=== PATIENT | female | born 1955 | race Caucasian/White ===

== ENCOUNTER 2017-07-19 14:08 | Emergency (ER) | payer OTHER ==
--- NOTE | 2017-07-19 15:26 | ER Document Report ---
ED Respiratory Problem - General Chief Complaint: Cough Stated Complaint: THROAT ISSUES Time Seen by Provider: 07/19/17 15:06 Notes: Patient is a 62-year-old female who presents emergency department with a chief complaint of sore throat, fever and chills nausea that started this morning. Recent past medical history significant for bronchitis, shortness of breath and nonproductive cough for the past 5 weeks. Patient states that she has been treated with antibiotics steroids with her primary care office out of [facility]. She states that she still has intermittent shortness of breath but denies any chest pain. Patient concerns that her sore throat, Fever are consistent with an allergic reaction to her Singulair which she has been taken before but recently restarted within the past week. She denies any rash, tongue or lip swelling. TRAVEL OUTSIDE OF THE [place] IN LAST 30 DAYS: No - Related Data Allergies/Adverse Reactions: phenytoin [From Dilantin] Allergy (Verified 07/19/17 14:10) Sulfa (Sulfonamide Antibiotics) Allergy (Verified 07/19/17 14:10) Past Medical History - Social History Smoking Status: Former Smoker Chew tobacco use (# tins/day): No Frequency of alcohol use: Rare Drug Abuse: None Family History: Reviewed & Not Pertinent Patient has suicidal ideation: No Patient has homicidal ideation: No - Past Medical History Cardiac Medical History: Reports: Hx Hypercholesterolemia, Hx Hypertension Renal/ Medical History: Denies: Hx Peritoneal Dialysis Psychiatric Medical History: Reports: Hx Bipolar Disorder Review of Systems - Review of Systems Notes: REVIEW OF SYSTEMS: CONSTITUTIONAL : Admits to subjective fevers denies chills, or sweats. Denies recent illness. EENT: See HPI otherwise Denies eye, ear, throat, or mouth pain or symptoms. Denies nasal or sinus congestion or discharge. Denies throat, tongue, or mouth swelling CARDIOVASCULAR: Denies chest pain. Denies palpitations or racing or irregular heart beat. Admits to mild ankle edema. RESPIRATORY: Admits to nonproductive cough, shortness of breath Denies difficulty breathing, or wheezing. GASTROINTESTINAL: Denies abdominal pain or distention. Denies nausea, vomiting , or diarrhea. Denies blood in vomitus, stools, or per rectum. Denies black, tarry stools. Denies constipation. MUSCULOSKELETAL: Denies any muscle spasms, difficulty walking, extremity pain SKIN: Denies rash, lesions or sores. HEMATOLOGIC : Denies easy bruising or bleeding. LYMPHATIC: Denies swollen, enlarged glands. NEUROLOGICAL: Denies confusion or altered mental status. Denies passing out or loss of consciousness. Denies dizziness or lightheadedness. Denies headache. Denies weakness or paralysis or loss of use of either side. Denies problems with gait or speech. Denies sensory loss, numbness, or tingling. Denies seizures. PSYCHIATRIC: Denies anxiety or stress. Denies depression, suicidal ideation, or homicidal ideation. ALL OTHER SYSTEMS REVIEWED AND NEGATIVE. Dictation was performed using [employer] voice recognition software Physical Exam - Vital signs Vitals: Temp Pulse Resp BP Pulse Ox 99.0 F 103 H 23 H 139/74 H 97 07/19/17 14:22 07/19/17 14:22 07/19/17 14:22 07/19/17 14:22 07/19/17 14:22 - Notes Notes: PHYSICAL EXAM GENERAL: Alert, interacts well. HEENT: NCAT, pale conjunctiva, extraocular movements intact, pupils PERRL. external ear normal, no evidence of external auditory canal tenderness, blood/ drainage, cerumen impaction, TM intact without evidence of effusion, bulging, injection, MMM, Uvula midline. Airway patent. No evidence of tonsillar enlargement, peritonsillar abscess, retropharyngeal abscess. LUNGS: Clear to auscultation bilaterally, no wheezes, rales, or rhonchi. No respiratory distress. HEART: Regular rate and rhythm. No murmurs, gallops, or rubs. ABDOMEN: Soft, nondistended, nontender. No guarding, rebound, or rigidity.. Bowel sounds present in all 4 quadrants. EXTREMITIES: Moves all 4 extremities spontaneously. Bilateral 1+ pitting edema , radial and dorsalis pedis pulses 2/4 bilaterally. No cyanosis. NEUROLOGICAL: Alert and oriented x4. Normal speech. PSYCH: Normal affect, normal mood. SKIN: Warm, dry, normal turgor. No rashes or lesions noted. Course - Re-evaluation Re-evalutation: Patient is a 62-year-old female who is hemodynamically stable, no acute distress and afebrile. Rapid strep was negative without any significant pharyngeal physical exam findings, no concern for peritonsillar retropharyngeal abscess. CTA performed after multiple chest x-rays done. Otherwise will score 0. BMP also does not show any significant elevation concerning for underlying undiagnosed CHF. Therefore patient's sore throat is likely related to a viral cause. Discussed with her to follow-up with her primary care doctor this week. Patient agrees with plan and stable for discharge home - Vital Signs Vital signs: Temp Pulse Resp BP Pulse Ox 99.1 F 90 23 H 126/64 H 96 07/19/17 18:25 07/19/17 18:25 07/19/17 14:22 07/19/17 18:25 07/19/17 18:25 - Laboratory Result Diagrams: 07/19/17 16:11 07/19/17 16:40 Laboratory results interpreted by me: 07/19/17 07/19/17 16:11 16:40 WBC 12.1 H Hgb 11.6 L Hct 34.3 L RDW 14.1 H Seg Neutrophils % 81.0 H Lymphocytes % 11.2 L Absolute Neutrophils 9.8 H Glucose 126 H Discharge - Discharge Clinical Impression: Sore throat, Cough Condition: Good Disposition: HOME, SELF-CARE Additional Instructions: Your evaluation today does not show any evidence of a bacterial cause for your sore throat. I would recommend an oopa-zfe-ayfnqne lozenge that has menthol in it or Cepacol to help with your sore throat and otherwise to utilize a soft, liquid diet. You can also take qsdm-ryv-jieryrs Motrin and Tylenol for pain. Regarding your shortness of breath, cough, there is no evidence of a blood clot in her lungs, underlying pneumonia or any other abnormalities on your CT scan. Please follow-up with your primary care doctor as instructed. Otherwise please hold off on the Singulair and you can start taking an sfhk-vfu-iskcfak Claritin/ Zyrtec/Aparna.
[2017-07-19 16:27] LABS: ABSOLUTE EOSINOPHILS # (AUTO) 0.1 10^3/uL (0.0-0.6); ABSOLUTE LYMPHOCYTES (AUTO) 1.3 10^3/uL (0.5-4.7); ABSOLUTE MONOCYTES (AUTO) 0.8 10^3/uL (0.1-1.4); ABSOLUTE NEUT (AUTO) 9.8 10^3/uL (1.7-8.2); BASOPHILS % (AUTO) 0.3 % (0-2); EOSINOPHILS % (AUTO) 1.1 % (0-6); HEMATOCRIT 34.3 % (36.0-47.0); HEMOGLOBIN 11.6 g/dL (12.0-15.5); LYMPHOCYTES % (AUTO) 11.2 % (13-45); MEAN CORPUSCULAR HEMOGLOBIN 28.2 pg (27.0-33.4); MEAN CORPUSCULAR HGB CONC 33.7 g/dL (32.0-36.0); MEAN CORPUSCULAR VOLUME 84 fl (80-97); MONOCYTES % (AUTO) 6.4 % (3-13); PLATELET COUNT 187 10^3/uL (150-450); RED CELL DISTRIBUTION WIDTH 14.1 % (11.5-14.0); TOTAL CELLS COUNTED % (AUTO) 100 %; WHITE BLOOD COUNT 12.1 10^3/uL (4.0-10.5)
[2017-07-19 17:11] LABS: ANION GAP 10 (5-19); BLOOD UREA NITROGEN 12 mg/dL (7-20); CALCIUM 9.5 mg/dL (8.4-10.2); CARBON DIOXIDE 27 mmol/L (22-30); CHLORIDE 105 mmol/L (98-107); GLUCOSE 126 mg/dL (75-110); POTASSIUM 3.9 mmol/L (3.6-5.0); SODIUM 142.1 mmol/L (137-145)
[2017-07-19] MEDS ORDERED: ONDANSETRON 4 MG TAB.RAPDIS PO ONE (17:45)
--- NOTE | 2017-07-19 17:55 | RADIOLOGY REPORT (SQ) ---
EXAM DESCRIPTION: CTA CHEST COMPLETED DATE/TIME: 07/19/2017 5:45 pm REASON FOR STUDY: SOB, DEWITT COMPARISON: None. TECHNIQUE: CT scan of the chest performed using helical scanning technique with dynamic intravenous contrast injection. Images reviewed with lung, soft tissue and bone windows. Reconstructed coronal and sagittal MPR images reviewed. Additional 3 dimensional post-processing performed to develop Maximal Intensity Projection images (ND P). All images stored on PACS. All CT scanners at this facility use dose modulation, iterative reconstruction, and/or weight based d osing when appropriate to reduce radiation dose to as low as reasonably achievable (ALARA). [facility]: Dose Right [facility]: CareDose [facility]: Dose Right [facility]: Teradose 4D [facility]: Aquaporin CONTRAST TYPE AND DOSE: contrast/concentration: Isovue 370.00 mg/ml; Total Contrast Delivered: 81.0 ml; Total Saline Delivered: 80.1 ml Contrast bolus adequate for pulmonary arteries and aorta. RENAL FUNCTION: BUN 12 creatinine 0.67. RADIATION DOSE: CT Rad equipment meets quality standard of care and radiation dose reduction techniq ues were employed. CTDIvol: 19.5 - 39.7 mGy. DLP: 706 mGy-cm. . LIMITATIONS: None. FINDINGS: LUNGS AND PLEURA: No masses, infiltrates, pneumothorax. No pleural effusions, calcificati ons. AORTA AND GREAT VESSELS: No aneurysm. No dissection. HEART: No pericardial effusion. No significant coronary artery calcifications. PULMONARY ARTERIES: No emboli visualized in the main pulmonary arteries or the segmental branches. HILAR AND MEDIASTINAL STRUCTURES: No identified masses or abnormal nodes. HARDWARE: None in the chest. UPPER ABDOMEN: No significant findings. Limited exam. THYROID AND OTHER SOFT TISSUES: No masses. No adenopathy. BONES: No acute or significant finding. 3D MIPS: Confirm above findings. OTHER: No other significant finding. IMPRESSION: NORMAL CTA OF THE CHEST. NO PULMONARY EMBOLI. COMMENT: Quality ID # [id number]: Final reports with documentation of one or more dose reduction techniques (e.g., Automated exposure control, adjustment of the mA and/or kV according to patient size, use of iterative reconstruction technique) TECHNICAL DOCUMENTATION: JOB ID: [id number] [employer]- All Rights Reserved Reading location - IP/workstation name: [email or web address]
[2017-07-19 18:28] VITALS: BP 126/64
== END 2017-07-19 18:27 | disposition home or self-care (01) ==
LOC: ER 14:08
DX: J02.9 Acute pharyngitis, unspecified (principal); R05 Cough; R11.0 Nausea; E78.00 Pure hypercholesterolemia, unspecified; I10 Essential (primary) hypertension; Z87.891 Personal history of nicotine dependence
CPT/HCPCS: 99284; 36415; 87070; 87880; 85025; 87077; 80048; 83880; 71275; S0119

== ENCOUNTER 2019-12-10 17:56 | Emergency (ER) | payer SELFPAY ==
[2019-12-10] MEDS ORDERED: FAMOTIDINE INJ/PF 20 MG/2 ML SDV IV ONE (20:21)
[2019-12-10] MEDS ORDERED: METHYLPREDNISOLONE INJ 125 MG/2 ML SDV IV ONE (20:21)
[2019-12-10] MEDS ORDERED: DIPHENHYDRAMINE HCL 50 MG/ML VIAL IV ONE (20:21)
--- NOTE | 2019-12-10 20:39 | ER Document Report ---
ED General - General Chief Complaint: Rash Stated Complaint: COUGH/CONGESTION/SOB/RASH/CHILLS Time Seen by Provider: 12/10/19 19:56 Notes: CHIEF COMPLAINT: Multiple complaints HPI: 64-year-old female presenting with multiple complaints. Patient has not felt well over the last 5 or 6 days progressively worsening cough and shortness of breath. No chest pain. Patient broke out in a pruritic urticarial type rash yesterday which she felt first in the throat now on the extremities and torso. Has not taken any medications for same. Patient states she has lost her sense of taste and smell. Patient states that 1 of her family members [place] for being sick with upper respiratory symptoms earlier in the week as well but does not believe they were COVID tested. Patient complains of some nausea no vomiting. Occasional diarrhea. ROS: See HPI - all other systems were reviewed and are otherwise negative Constitutional: no fever Eyes: no drainage, no blurred vision ENT: no runny nose, no sore throat Cardiovascular: no chest pain Resp: + SOB, + cough GI: no vomiting, + diarrhea, no abdominal pain, + nausea : no dysuria Integumentary: no rash Allergy: + hives Musculoskeletal: no extremity pain or swelling Neurological: no numbness/tingling, no weakness MEDICATIONS: I agree with the patient medications as charted by the RN. ALLERGIES: I agree with the allergies as charted by the RN. PAST MEDICAL HISTORY/PAST SURGICAL HISTORY: Reviewed and agree as charted by RN. SOCIAL HISTORY: Reviewed and agree as charted by RN. FAMILY HISTORY: No significant familial comorbid conditions directly related to patient complaint EXAM: Reviewed vital signs as charted by RN. CONSTITUTIONAL: Alert and oriented and responds appropriately to questions. Well-appearing; well-nourished HEAD: Normocephalic; atraumatic EYES: PERRL; Conjunctivae clear, sclerae non-icteric ENT: normal nose; no rhinorrhea; moist mucous membranes; pharynx without lesions noted, no uvula edema or deviation, no tonsillar hypertrophy, phonation normal NECK: Supple without meningismus; non-tender; no cervical lymphadenopathy, no masses CARD: RRR; no murmurs, no clicks, no rubs, no gallops; symmetric distal pulses RESP: Normal chest excursion without splinting or tachypnea; breath sounds clear and equal bilaterally; no wheezes, no rhonchi, no rales, pulse oximetry 97% on room air not hypoxic ABD/GI: Obese, normal bowel sounds; non-distended; soft, non-tender, no rebound, no guarding; no palpable organomegaly or masses. BACK: The back appears normal and is non-tender to palpation, there is no CVA tenderness EXT: Normal ROM in all joints; non-tender to palpation; no cyanosis, no effusions, no edema SKIN: Normal color for age and race; warm; dry; good turgor; urticarial lesions are noted on the bilateral arms legs and torso NEURO: Moves all extremities equally; Motor and sensory function intact PSYCH: The patient's mood and manner are appropriate. Grooming and personal hygiene are appropriate. MDM: 64-year-old female presenting with multiple complaints suggesting COVID-19 infection. Will obtain screening labs including cardiac labs given the patient age, EKG, chest x-ray to evaluate for infiltrate. Patient does have generalized urticaria will treat with steroids and antihistamines. TRAVEL OUTSIDE OF THE [place] IN LAST 30 DAYS: No - Related Data Allergies/Adverse Reactions: phenytoin [From Dilantin] Allergy (Verified 07/19/17 14:10) Sulfa (Sulfonamide Antibiotics) Allergy (Verified 07/19/17 14:10) Past Medical History - Social History Smoking Status: Unknown if Ever Smoked Family History: Reviewed & Not Pertinent - Past Medical History Cardiac Medical History: Reports: Hx Hypercholesterolemia, Hx Hypertension Renal/ Medical History: Denies: Hx Peritoneal Dialysis Psychiatric Medical History: Reports: Hx Bipolar Disorder Physical Exam - Vital signs Vitals: Pulse Ox 99 12/10/19 17:56 Course - Re-evaluation Re-evalutation: 12/10/19 22:35 Patient's lab work does not show acute emergent abnormalities. Chest x-ray does not show acute emergent abnormalities. Hives are significantly improved. We wi ll plan to keep patient on steroids and antihistamines given the urticaria. We will keep her on Zofran for the nausea. She was reporting some epigastric distress. We will keep her on Pepcid as well. Patient will be considered a person under investigation at this time will still quarantine at home until she has a negative test result will return for any worsening of her symptoms 12/10/19 22:38 EKG normal sinus rhythm with a ventricular rate of 97 without other ectopy. MN interval of 152 with a QT of 356 interpreted by emergency department physician - Vital Signs Vital signs: Temp Pulse Resp BP Pulse Ox 98.8 F 95 24 H 150/74 H 100 12/10/19 19:46 12/10/19 19:46 12/10/19 19:46 12/10/19 19:46 12/10/19 19:46 - Laboratory Result Diagrams: 12/10/19 21:09 12/10/19 21:09 Laboratory results interpreted by me: 12/10/19 21:09 Sodium 135.4 L Est GFR (MDRD) Non-Af 56 L Glucose 124 H Discharge - Discharge Clinical Impression: Acute urticaria, Person under investigation for COVID-19, Shortness of breath, Nausea Condition: Stable Disposition: HOME, SELF-CARE Additional Instructions: Your lab work and chest x-ray did not show acute emergent abnormalities. You are considered a person under investigation for COVID-19 at this time self quarantine at home until you have a negative test result. Take Zofran for nausea. Take Pepcid and prednisone for the urticaria and hives. Follow-up with your primary care provider return if you have worsening symptoms. Test results usually take 2 to 5 days Prescriptions: Prednisone [Deltasone 20 mg Tablet] 2 tab PO DAILY 5 Days #10 tablet Famotidine [Pepcid 20 mg Tablet] 20 mg PO BID #12 tablet Ondansetron [Zofran Odt 4 mg Tablet] 1 - 2 tab PO Q4H PRN #15 tab.rapdis PRN Reason: For Nausea/Vomiting
--- NOTE | 2019-12-10 21:07 | RADIOLOGY REPORT (SQ) ---
EXAM DESCRIPTION: [facility]: XR CHEST 1 VIEW CLINICAL HISTORY: 64 years Female; cough; COMPARISON: None. FINDINGS: Lungs: Lungs are clear, with no focal infiltrate, pneumothorax, or pleural effusion. Mediastinum: Mediastinum is within normal limits for this positioning. Bones: Bony structures are unremarkable. IMPRESSION: 1. No acute pulmonary findings.
[2019-12-10 21:28] LABS: ABSOLUTE LYMPHOCYTES (AUTO) 1.5 10^3/uL (0.5-4.7); ABSOLUTE MONOCYTES (AUTO) 0.5 10^3/uL (0.1-1.4); ABSOLUTE NEUT (AUTO) 2.9 10^3/uL (1.7-8.2); BASOPHILS % (AUTO) 0.5 % (0-2); EOSINOPHILS % (AUTO) 0.8 % (0-6); HEMATOCRIT 41.4 % (36.0-47.0); HEMOGLOBIN 14.5 g/dL (12.0-15.5); LYMPHOCYTES % (AUTO) 29.9 % (13-45); MEAN CORPUSCULAR HEMOGLOBIN 29.4 pg (27.0-33.4); MEAN CORPUSCULAR HGB CONC 34.9 g/dL (32.0-36.0); MEAN CORPUSCULAR VOLUME 84 fl (80-97); MONOCYTES % (AUTO) 9.2 % (3-13); PLATELET COUNT 187 10^3/uL (150-450); RED BLOOD COUNT 4.91 10^6/uL (3.72-5.28); RED CELL DISTRIBUTION WIDTH 13.6 % (11.5-14.0); SEGMENTED NEUTROPHILS % (AUTO) 59.6 % (42-78); TOTAL CELLS COUNTED % (AUTO) 100 %; WHITE BLOOD COUNT 4.9 10^3/uL (4.0-10.5)
--- NOTE | 2019-12-10 21:36 | EKG REPORT ---
SEVERITY:- NORMAL ECG - SINUS RHYTHM : Confirmed by: Trey Gr 10-Dec-2019 21:35:32
[2019-12-10 21:47] LABS: ALBUMIN 4.3 g/dL (3.5-5.0); ALKALINE PHOSPHATASE 55 U/L (38-126); ANION GAP 8 (5-19); ASPARTATE AMINO TRANSFERASE 30 U/L (14-36); BILIRUBIN,TOTAL 0.4 mg/dL (0.2-1.3); BLOOD UREA NITROGEN 16 mg/dL (7-20); CALCIUM 9.4 mg/dL (8.4-10.2); CARBON DIOXIDE 24 mmol/L (22-30); CHLORIDE 103 mmol/L (98-107); GLUCOSE 124 mg/dL (75-110); POTASSIUM 4.2 mmol/L (3.6-5.0); TOTAL PROTEIN 7.4 g/dL (6.3-8.2)
[2019-12-10 21:59] LABS: NT PRO BNP 22 pg/mL (<125)
[2019-12-10 22:13] LABS: TROPONIN I < 0.012 ng/mL
[2019-12-10] MEDS ORDERED: ONDANSETRON HCL INJ/PF 4 MG/2 ML SDV IV ONE (22:14)
[2019-12-10 23:31] VITALS: BP 146/98
== END 2019-12-11 00:38 | disposition home or self-care (01) ==
LOC: ER 17:56
DX: U07.1 COVID-19 (principal); L50.9 Urticaria, unspecified; R06.02 Shortness of breath; R11.0 Nausea; R05 Cough; R43.8 Other disturbances of smell and taste; I10 Essential (primary) hypertension; Z79.899 Other long term (current) drug therapy; Z88.8 Allergy status to other drugs, medicaments and biological substances; Z88.2 Allergy status to sulfonamides
CPT/HCPCS: 93005; 99284; 96374; 96375; 36415; 85025; 87635; 80053; 84484; 83880; 71045; 93010; J1200; J2930; J2405; S0028; C9803